=== PATIENT | male | born 1980 | race Two or more races ===

== ENCOUNTER 2016-06-08 16:44 | Inpatient (IN) | payer MEDICAID, OTHER ==
[~2016-06-08] VITALS: Ht 180.3 cm; Wt 93.7 kg
[~2016-06-08 16:44] MED LIST: DIAZ10TA3; GABA800T97; HYDR50TA69; METH10TA97
[2016-06-08 18:08] LABS: Basophils # (auto) 0 uL; Basophils % (auto) 0.4 % (0.0-2.0); Eosinophils # (auto) 0.1 uL; Eosinophils % (auto) 0.7 % (0.0-7.0); Hematocrit 38.7 % (41.0-53.0); Hemoglobin 12.7 g/dL (13.5-17.5); Lymphocytes # (auto) 2.4 uL; Lymphocytes % (auto) 27.2 % (10.0-50.0); Mean Corpuscular Hemoglobin 27.9 pg (28.0-32.0); Mean Corpuscular Hgb Conc. 32.7 g/dL (32.0-36.0); Mean Corpuscular Volume 85.3 fL (80.0-100.0); Mean Platelet Volume 8.5 fL (7.4-10.4); Monocytes # (auto) 0.6 uL; Monocytes % (auto) 6.8 % (0.0-12.0); Neutrophils # (auto) 5.6 uL; Neutrophils % (auto) 64.9 % (37.0-80.0); Platelet Count (auto) 266 10^3/uL (140-450); Red Cell Distribution Width 16.1 % (11.6-16.0); White Blood Cell 8.6 10^3/uL (4.4-10.8)
[2016-06-08 18:19] LABS: Albumin 3.6 g/dL (3.4-5.0); BUN/Creatinine Ratio 11.7; Calcium 8.8 mg/dL (8.5-10.1); Potassium 3.4 mmol/L (3.5-5.1)
[2016-06-08 18:22] LABS: Acetaminophen 14.1 ug/mL (10-30); Salicylate < 1.7 mg/dL (2.8-20.0)
[2016-06-08 18:23] LABS: Total Protein 6.8 g/dL (6.4-8.2)
[2016-06-08] MEDS ORDERED: SUCCINYLCHOLINE CHLORIDE 20 MG/ML 10ML VIAL IV ONE ×2 (18:35→18:45)
[2016-06-08] MEDS ORDERED: ETOMIDATE (2MG/ML) 20ML VIAL IV ONE ×2 (18:35→18:45)
[2016-06-08] MEDS ORDERED: MIDAZOLAM DRIP 100 mg/100mL NS 100 ML IV ONE (18:49)
[2016-06-08] MEDS ORDERED: SODIUM CHLORIDE 0.9% 1,000 ML IV ONE ×2 (19:00→20:45)
[2016-06-08] MEDS: MIDAZOLAM DRIP 100 mg/100mL NS 100 ML IV SCH ×2 (20:00→23:48)
[2016-06-08] MEDS: PROPOFOL 100 ML IV SCH ×2 (20:29→22:48)
[2016-06-08 20:43] VITALS: BP 105/68
[2016-06-08] MEDS: NOREPINEPHRINE BITARTRATE 250 ML IV SCH (21:07)
[2016-06-08 21:34] VITALS: BP 105/68
[2016-06-08 22:00] VITALS: BP 135/96
[2016-06-08 22:43] LABS: Urine Bilirubin Negative (Negative); Urine Color Red (Yellow); Urine Glucose Normal (Normal); Urine Nitrite Negative (Negative); Urine RBC 2063 /hpf (0 - 3); Urine Urobilinogen Normal (Negative); Urine pH 5.5 (5.0-8.0)
[2016-06-08 22:46] LABS: Urine Blood 3+ /uL (Negative); Urine Ketone 1+ (Negative)
[2016-06-08 23:03] LABS: Albumin 3.2 g/dL (3.4-5.0); BUN/Creatinine Ratio 13.4; Bilirubin, Total 1.1 mg/dL (0.2-1.0); Calcium 8.2 mg/dL (8.5-10.1); Potassium 3.8 mmol/L (3.5-5.1); Total Protein 6.2 g/dL (6.4-8.2)
[2016-06-08] MEDS ORDERED: MORPHINE SULF INJ 2 MG/ML SYRINGE 1ML IV PRN ×2 (23:45)
[2016-06-08] MEDS ORDERED: ACETAMINOPHEN 325 MG TAB PO PRN (23:45)
[2016-06-08] MEDS ORDERED: cefTRIAXone 1GM/50ML D5W 50 ML IV ONE (23:45)
[2016-06-08] MEDS ORDERED: NITROGLYCERIN 0.4 MG SL TAB SL PRN (23:45)
[2016-06-08] MEDS ORDERED: ONDANSETRON HCL 4 MG/2 ML VIAL IV PRN (23:45)
[2016-06-09] VITALS (12 sets, daily range): BP systolic 96–115; BP diastolic 52–75
[2016-06-09] MEDS: PROPOFOL 100 ML IV SCH ×4 (00:06→04:59)
[2016-06-09] MEDS: D5W/SOD CHL 0.45% 1,000 ML IV SCH ×2 (00:23→13:05)
[2016-06-09] MEDS: NOREPINEPHRINE BITARTRATE 250 ML IV SCH (00:43)
[2016-06-09] MEDS: MIDAZOLAM DRIP 100 mg/100mL NS 100 ML IV SCH ×2 (02:48→05:38)
[2016-06-09 06:32] LABS: BUN/Creatinine Ratio 13.1; Bilirubin, Total 0.8 mg/dL (0.2-1.0); Calcium 8.2 mg/dL (8.5-10.1); Potassium 3.6 mmol/L (3.5-5.1)
[2016-06-09] MEDS: IPRATROPIUM BROM 0.5 MG/2.5ML INH SOL NEB SCH ×5 (07:36→22:10)
[2016-06-09] MEDS: cefTRIAXone 1GM/50ML D5W 50 ML IV SCH (09:50)
[2016-06-09] MEDS: FAMOTIDINE (10MG/ML) 2ML VL IV SCH ×2 (10:19→21:28)
[2016-06-09] MEDS: ENOXAPARIN SOD 40 MG/0.4 ML SYRINGE SC SCH (10:19)
[2016-06-09] MEDS: PANTOPRAZOLE SODIUM 40 MG/10 ML VIAL IV SCH (10:19)
[2016-06-10] VITALS (71 sets, daily range): BP systolic 85–120; BP diastolic 48–87
[2016-06-10] MEDS: IPRATROPIUM BROM 0.5 MG/2.5ML INH SOL NEB SCH ×6 (02:26→22:43)
[2016-06-10] MEDS: D5W/SOD CHL 0.45% 1,000 ML IV SCH ×2 (02:30→16:46)
[2016-06-10 06:22] LABS: Basophils # (auto) 0 uL; Basophils % (auto) 0.4 % (0.0-2.0); Eosinophils # (auto) 0.1 uL; Eosinophils % (auto) 1.3 % (0.0-7.0); Lymphocytes # (auto) 1.3 uL; Lymphocytes % (auto) 15.4 % (10.0-50.0); Mean Corpuscular Hemoglobin 28.3 pg (28.0-32.0); Mean Corpuscular Hgb Conc. 33.5 g/dL (32.0-36.0); Mean Corpuscular Volume 84.5 fL (80.0-100.0); Mean Platelet Volume 8.7 fL (7.4-10.4); Monocytes # (auto) 0.6 uL; Neutrophils # (auto) 6.4 uL; Neutrophils % (auto) 75.9 % (37.0-80.0); Platelet Count (auto) 244 10^3/uL (140-450); Red Cell Distribution Width 16.2 % (11.6-16.0); White Blood Cell 8.4 10^3/uL (4.4-10.8)
[2016-06-10 07:15] LABS: Albumin 2.7 g/dL (3.4-5.0); BUN/Creatinine Ratio 9.6; Bilirubin, Total 0.5 mg/dL (0.2-1.0); Calcium 8.2 mg/dL (8.5-10.1); Potassium 3.6 mmol/L (3.5-5.1); Total Protein 6.1 g/dL (6.4-8.2)
[2016-06-10] MEDS: FAMOTIDINE (10MG/ML) 2ML VL IV SCH ×2 (10:00→22:26)
[2016-06-10] MEDS: ENOXAPARIN SOD 40 MG/0.4 ML SYRINGE SC SCH (10:42)
[2016-06-10] MEDS: PANTOPRAZOLE SODIUM 40 MG/10 ML VIAL IV SCH (10:42)
[2016-06-10] MEDS: cefTRIAXone 1GM/50ML D5W 50 ML IV SCH (10:42)
[2016-06-10] MEDS ORDERED: CITALOPRAM HYDROBR 20 MG TAB PO ONE (15:45)
[2016-06-10] MEDS: FREE WATER GT SCH ×2 (16:46→23:45)
[2016-06-10] MEDS: PROPOFOL 100 ML IV SCH (20:24)
[2016-06-10] MEDS: MIDAZOLAM DRIP 100 mg/100mL NS 100 ML IV SCH (20:47)
[2016-06-10] MEDS: NOREPINEPHRINE BITARTRATE 250 ML IV SCH (22:25)
[2016-06-10] MEDS: GABAPENTIN 300 MG CAP PO SCH (22:26)
[2016-06-11] VITALS (107 sets, daily range): BP systolic 88–138; BP diastolic 49–88
[2016-06-11] MEDS: IPRATROPIUM BROM 0.5 MG/2.5ML INH SOL NEB SCH ×6 (02:27→22:50)
[2016-06-11] MEDS: PROPOFOL 100 ML IV SCH ×5 (02:38→22:04)
[2016-06-11 04:29] LABS: Albumin 2.5 g/dL (3.4-5.0); BUN/Creatinine Ratio 7.3; Calcium 8.2 mg/dL (8.5-10.1); Potassium 3.5 mmol/L (3.5-5.1)
[2016-06-11 04:31] LABS: Bilirubin, Total 0.4 mg/dL (0.2-1.0); Total Protein 5.9 g/dL (6.4-8.2)
[2016-06-11] MEDS: D5W/SOD CHL 0.45% 1,000 ML IV SCH ×3 (06:06→22:02)
[2016-06-11] MEDS: FREE WATER GT SCH ×3 (06:06→16:55)
[2016-06-11] MEDS: GABAPENTIN 300 MG CAP PO SCH ×3 (06:06→22:02)
[2016-06-11] MEDS: CITALOPRAM HYDROBR 20 MG TAB PO SCH (09:00)
[2016-06-11] MEDS: FAMOTIDINE (10MG/ML) 2ML VL IV SCH ×2 (09:00→22:02)
[2016-06-11] MEDS: PANTOPRAZOLE SODIUM 40 MG/10 ML VIAL IV SCH (09:00)
[2016-06-11] MEDS: ENOXAPARIN SOD 40 MG/0.4 ML SYRINGE SC SCH (09:00)
[2016-06-11] MEDS: cefTRIAXone 1GM/50ML D5W 50 ML IV SCH (09:00)
[2016-06-11] MEDS ORDERED: ACETAMINOPHEN 650 mg PER 20 mL UD ONE (10:30)
[2016-06-11] MEDS ORDERED: ACETAMINOPHEN 650 mg PER 20 mL UD PO PRN (11:00)
[2016-06-11] MEDS ORDERED: VANCOMYCIN PER PHARMACY 0 MG IV SCH (11:45)
[2016-06-11] MEDS: VANCOMYCIN 1GM/250ML D5W 250 ML IV SCH ×2 (13:41→20:55)
[2016-06-11] MEDS: MIDAZOLAM DRIP 100 mg/100mL NS 100 ML IV SCH ×2 (13:42→22:05)
[2016-06-11] MEDS: POTASSIUM CHL 20MEQ/100ML 100 ML IV SCH ×2 (14:49→16:55)
[2016-06-11] MEDS: NOREPINEPHRINE BITARTRATE 250 ML IV SCH (19:19)
[2016-06-12] VITALS (75 sets, daily range): BP systolic 91–137; BP diastolic 49–93
[2016-06-12 04:24] LABS: Basophils # (auto) 0 uL; Basophils % (auto) 0.2 % (0.0-2.0); Eosinophils # (auto) 0 uL; Eosinophils % (auto) 0.3 % (0.0-7.0); Lymphocytes # (auto) 1.7 uL; Lymphocytes % (auto) 13.4 % (10.0-50.0); Mean Corpuscular Hemoglobin 28.1 pg (28.0-32.0); Mean Corpuscular Hgb Conc. 32.5 g/dL (32.0-36.0); Mean Corpuscular Volume 86.5 fL (80.0-100.0); Mean Platelet Volume 9.2 fL (7.4-10.4); Monocytes # (auto) 0.5 uL; Monocytes % (auto) 4.3 % (0.0-12.0); Neutrophils # (auto) 10.3 uL; Neutrophils % (auto) 81.8 % (37.0-80.0); Platelet Count (auto) 199 10^3/uL (140-450); Red Cell Distribution Width 16.6 % (11.6-16.0); SUSPECT VIEW TRANSMISSION; White Blood Cell 12.5 10^3/uL (4.4-10.8)
[2016-06-12 04:48] LABS: BUN/Creatinine Ratio 4.5; Calcium 8.6 mg/dL (8.5-10.1)
[2016-06-12] MEDS: IPRATROPIUM BROM 0.5 MG/2.5ML INH SOL NEB SCH ×3 (05:56→14:40)
[2016-06-12] MEDS: ALBUTEROL SULF 2.5 MG/0.5ML(0.5%) NEB SOLN NEB PRN ×3 (05:57→14:40)
[2016-06-12] MEDS: cefTRIAXone 1GM/50ML D5W 50 ML IV SCH (09:00)
[2016-06-12] MEDS: PANTOPRAZOLE SODIUM 40 MG/10 ML VIAL IV SCH (09:45)
[2016-06-12] MEDS: ENOXAPARIN SOD 40 MG/0.4 ML SYRINGE SC SCH (09:45)
[2016-06-12] MEDS: FAMOTIDINE (10MG/ML) 2ML VL IV SCH (09:45)
[2016-06-12] MEDS: CITALOPRAM HYDROBR 20 MG TAB PO SCH (09:45)
[2016-06-12] MEDS: MIDAZOLAM DRIP 100 mg/100mL NS 100 ML IV SCH ×2 (09:56→15:55)
[2016-06-12] MEDS: LORazepam 2MG/ML-1ML VIAL IV PRN ×3 (11:49→19:39)
[2016-06-12] MEDS: FREE WATER GT SCH (12:00)
[2016-06-12] MEDS: VANCOMYCIN 1GM/250ML D5W 250 ML IV SCH ×2 (13:00→21:20)
[2016-06-12] MEDS ORDERED: VITAMINS A & D (TOPICAL) OINT 5GM TOP ONE (13:46)
[2016-06-12] MEDS: GABAPENTIN 300 MG CAP PO SCH ×2 (14:00→22:04)
[2016-06-12] MEDS: D5W/SOD CHL 0.45% 1,000 ML IV SCH (14:30)
[2016-06-12] MEDS: MORPHINE SULF INJ 2 MG/ML SYRINGE 1ML IV PRN (16:58)
[2016-06-12] MEDS: METHADONE HCL 10 MG TAB PO SCH (22:04)
[2016-06-13] MEDS: MORPHINE SULF INJ 2 MG/ML SYRINGE 1ML IV PRN ×2 (00:28→10:08)
[2016-06-13 05:00] VITALS: BP 129/97
[2016-06-13] MEDS: VANCOMYCIN 1GM/250ML D5W 250 ML IV SCH ×2 (05:10→12:52)
[2016-06-13 05:50] LABS: Basophils # (auto) 0 uL; Basophils % (auto) 0.3 % (0.0-2.0); Eosinophils # (auto) 0.1 uL; Eosinophils % (auto) 0.9 % (0.0-7.0); Hematocrit 33.8 % (41.0-53.0); Hemoglobin 11.1 g/dL (13.5-17.5); Lymphocytes # (auto) 1.7 uL; Lymphocytes % (auto) 18.5 % (10.0-50.0); Mean Corpuscular Hemoglobin 27.9 pg (28.0-32.0); Mean Corpuscular Hgb Conc. 32.9 g/dL (32.0-36.0); Mean Corpuscular Volume 84.9 fL (80.0-100.0); Mean Platelet Volume 8.6 fL (7.4-10.4); Monocytes # (auto) 0.6 uL; Monocytes % (auto) 6.4 % (0.0-12.0); Neutrophils # (auto) 6.8 uL; Neutrophils % (auto) 73.9 % (37.0-80.0); Platelet Count (auto) 242 10^3/uL (140-450); Red Cell Distribution Width 15.7 % (11.6-16.0); White Blood Cell 9.1 10^3/uL (4.4-10.8)
[2016-06-13 06:08] LABS: Albumin 2.6 g/dL (3.4-5.0); BUN/Creatinine Ratio 10.4; Calcium 8.5 mg/dL (8.5-10.1); Potassium 3.1 mmol/L (3.5-5.1)
[2016-06-13 06:12] LABS: Bilirubin, Total 0.5 mg/dL (0.2-1.0); Total Protein 6.3 g/dL (6.4-8.2)
[2016-06-13] MEDS: METHADONE HCL 10 MG TAB PO SCH ×3 (06:17→21:29)
[2016-06-13] MEDS: GABAPENTIN 300 MG CAP PO SCH ×3 (06:17→21:29)
[2016-06-13] MEDS: LORazepam 2MG/ML-1ML VIAL IV PRN ×2 (06:18→21:54)
[2016-06-13 09:00] VITALS: BP 121/81
[2016-06-13] MEDS: ENOXAPARIN SOD 40 MG/0.4 ML SYRINGE SC SCH (10:00)
[2016-06-13] MEDS: CITALOPRAM HYDROBR 20 MG TAB PO SCH (10:00)
[2016-06-13 13:00] VITALS: BP 135/94
[2016-06-13] MEDS: ALPRAZolam 0.5 MG TAB PO SCH ×2 (13:15→13:16)
[2016-06-13] MEDS ORDERED: LORazepam 2MG/ML-1ML VIAL IV PRN (13:15)
[2016-06-13] MEDS ORDERED: POTASSIUM CHL 20 Meq TABLET PO ONE (13:15)
[2016-06-13] MEDS ORDERED: MORPHINE SULF INJ 2 MG/ML SYRINGE 1ML IV PRN (13:15)
[2016-06-13 16:28] VITALS: BP 136/92
[2016-06-13] MEDS: VANCOMYCIN 1,250 MG in D5W 5% 250 ML IV SCH (21:29)
[2016-06-13 22:00] VITALS: BP 131/85
[2016-06-14] MEDS: MORPHINE SULF INJ 2 MG/ML SYRINGE 1ML IV PRN (01:35)
[2016-06-14] MEDS: VANCOMYCIN 1,250 MG in D5W 5% 250 ML IV SCH ×2 (04:45→13:00)
[2016-06-14 05:00] VITALS: BP 116/68
[2016-06-14] MEDS: GABAPENTIN 300 MG CAP PO SCH ×2 (05:27→15:13)
[2016-06-14] MEDS: METHADONE HCL 10 MG TAB PO SCH ×2 (05:27→15:15)
[2016-06-14 08:19] LABS: Basophils # (auto) 0 uL; Basophils % (auto) 0.4 % (0.0-2.0); Eosinophils # (auto) 0.2 uL; Eosinophils % (auto) 3.5 % (0.0-7.0); Hematocrit 34.2 % (41.0-53.0); Hemoglobin 11.4 g/dL (13.5-17.5); Lymphocytes # (auto) 1.9 uL; Lymphocytes % (auto) 31.9 % (10.0-50.0); Mean Corpuscular Hemoglobin 28.2 pg (28.0-32.0); Mean Corpuscular Hgb Conc. 33.3 g/dL (32.0-36.0); Mean Corpuscular Volume 84.7 fL (80.0-100.0); Mean Platelet Volume 8.1 fL (7.4-10.4); Monocytes # (auto) 0.5 uL; Monocytes % (auto) 7.8 % (0.0-12.0); Neutrophils # (auto) 3.4 uL; Neutrophils % (auto) 56.4 % (37.0-80.0); Platelet Count (auto) 256 10^3/uL (140-450); Red Cell Distribution Width 15.8 % (11.6-16.0); White Blood Cell 6.1 10^3/uL (4.4-10.8)
[2016-06-14 08:45] LABS: Albumin 2.9 g/dL (3.4-5.0); BUN/Creatinine Ratio 7.4; Bilirubin, Total 0.5 mg/dL (0.2-1.0); Calcium 9.2 mg/dL (8.5-10.1); Potassium 3.4 mmol/L (3.5-5.1); Total Protein 6.7 g/dL (6.4-8.2)
[2016-06-14] MEDS: LORazepam 2MG/ML-1ML VIAL IV PRN (09:23)
[2016-06-14] MEDS: ENOXAPARIN SOD 40 MG/0.4 ML SYRINGE SC SCH (09:23)
[2016-06-14] MEDS: CITALOPRAM HYDROBR 20 MG TAB PO SCH (09:23)
[2016-06-14 11:31] VITALS: BP 119/87
[2016-06-14 13:00] VITALS: BP 119/87
[2016-06-14] MEDS ORDERED: MUPI2OIN10 TOP (16:07)
== END 2016-06-14 18:11 | disposition home or self-care (01) | DRG 812 ==
LOC: EDBD 16:45 → ER 16:45 → EDUNIT# 16:46 → TELE 16:46 → ICU WEST 06-10 06:04 → TELE-WESTW 06-12 17:25
PROVIDERS: ADMIT Nurse Practitioner; ATTEND Internal Medicine
PROC: 0BH17EZ Insertion of Endotracheal Airway into Trachea, Via Natural or Artificial Opening (ICD-10-PCS; principal; 2016-06-08)
PROC: 5A1945Z Respiratory Ventilation, 24-96 Consecutive Hours (ICD-10-PCS; 2016-06-08)
DX: T40.3X2A Poisoning by methadone, intentional self-harm, initial encounter (principal); J96.01 Acute respiratory failure with hypoxia; G92 Toxic encephalopathy; E87.0 Hyperosmolality and hypernatremia; T40.601A Poisoning by unspecified narcotics, accidental (unintentional), initial encounter; N39.0 Urinary tract infection, site not specified; G89.4 Chronic pain syndrome; E88.09 Other disorders of plasma-protein metabolism, not elsewhere classified; F32.9 Major depressive disorder, single episode, unspecified; R31.0 Gross hematuria; F19.10 Other psychoactive substance abuse, uncomplicated; F41.9 Anxiety disorder, unspecified; F11.20 Opioid dependence, uncomplicated; B95.62 Methicillin resistant Staphylococcus aureus infection as the cause of diseases classified elsewhere; T42.4X2A Poisoning by benzodiazepines, intentional self-harm, initial encounter; Z82.49 Family history of ischemic heart disease and other diseases of the circulatory system; Y92.89 Other specified places as the place of occurrence of the external cause; Z80.8 Family history of malignant neoplasm of other organs or systems
CPT/HCPCS: 31500; 36415; 36556; 36600; 51702; 71010; 80053; 80329; 81001; 82805; 82962; 84484; 85025; 87086; 93005; 99291; G0434; J0330; J2704; J3490; J7030; 70450; 80048; 80202; 84295; 87070; 87077; 87081; 87186; 87205; 94002; 94003; 94640; C9113; J0696; J3480; J7060

== ENCOUNTER 2016-10-27 16:04 | Emergency (ER) | payer MEDICAID ==
[~2016-10-27] VITALS: Ht 182.9 cm; Wt 99.8 kg
[~2016-10-27 16:04] MED LIST changes: +MUPI2OIN10 TOP
[2016-10-27 16:19] VITALS: BP 121/82
[2016-10-27 16:43] LABS: Basophils # (auto) 0.1 uL; Basophils % (auto) 0.8 % (0.0-2.0); CONDITION Y; Eosinophils # (auto) 0.2 uL; Eosinophils % (auto) 2.1 % (0.0-7.0); Hematocrit 31.4 % (41.0-53.0); Hemoglobin 10.5 g/dL (13.5-17.5); Lymphocytes # (auto) 1.7 uL; Lymphocytes % (auto) 18.2 % (10.0-50.0); Mean Corpuscular Hemoglobin 31.3 pg (28.0-32.0); Mean Corpuscular Hgb Conc. 33.4 g/dL (32.0-36.0); Mean Corpuscular Volume 93.7 fL (80.0-100.0); Mean Platelet Volume 8.2 fL (7.4-10.4); Monocytes # (auto) 0.7 uL; Monocytes % (auto) 7.9 % (0.0-12.0); Neutrophils # (auto) 6.7 uL; Platelet Count (auto) 448 10^3/uL (140-450); Red Cell Distribution Width 15.4 % (11.6-16.0); White Blood Cell 9.4 10^3/uL (4.4-10.8)
[2016-10-27] MEDS ORDERED: SODIUM CHLORIDE 0.9% 1,000 ML IV ONE (16:59)
[2016-10-27] MEDS ORDERED: diphenhdrAMINE HCL 50 MG/1 ML VL IV ONE (17:00)
[2016-10-27] MEDS ORDERED: LORazepam 2MG/ML-1ML VIAL IV ONE (17:00)
[2016-10-27 17:04] LABS: Albumin 2.7 g/dL (3.4-5.0); Anion Gap 7 (5-15); Aspartate Aminotransferase 17 U/L (15-37); BUN/Creatinine Ratio 28.7; Blood Urea Nitrogen 27 mg/dL (7-18); Carbon Dioxide 24 mmol/L (21-32); Chloride 110 mmol/L (98-107); GFR African American 116 mL/min; GFR Non-African American 95 mL/min; Glucose 180 mg/dL (74-106); Potassium 4.2 mmol/L (3.5-5.1); Sodium 141 mmol/L (136-145)
[2016-10-27 17:09] LABS: Alkaline Phosphatase 89 U/L (45-117); Bilirubin, Total 0.4 mg/dL (0.2-1.0); Total Protein 7.7 g/dL (6.4-8.2)
[2016-10-27 17:19] LABS: Acetaminophen < 2.0 ug/mL (10-30); Salicylate < 1.7 mg/dL (2.8-20.0)
== END 2016-10-27 17:25 | disposition left against medical advice (07) ==
LOC: EDBD 16:04 → ER 16:11
DX: F41.9 Anxiety disorder, unspecified (principal); F15.10 Other stimulant abuse, uncomplicated; Z88.8 Allergy status to other drugs, medicaments and biological substances
CPT/HCPCS: 36415; 80053; 80320; 80329; 84484; 85025; 93005; 94761